=== PATIENT | male | born 1955 ===

== ENCOUNTER 2019-12-02 15:07 | Outpatient (REF) | payer SELFPAY ==
[2019-12-02 17:14] LABS: Chol HDL Ratio 3.98 mg/dL (1.0-5.00); Cholesterol 163 mg/dL (0-200); Glucose 113 mg/dL (65-115); HDL Cholesterol 41 mg/dL (60-100); LDL Cholesterol Calculated 106 mg/dL (50-129); LDL HDL Ratio 2.59 RATIO (0.00-3.22); Triglycerides 79 mg/dL (0-150)
[2019-12-02 17:55] LABS: Estmated Average Glucose 111; Hemoglobin A1C 5.5 % (4.0-6.0)
== END 2019-12-02 15:08 | disposition home or self-care (01) ==
LOC: LAB 15:07
PROVIDERS: Visit Provider Dermatology
DX: Z13.9 Encounter for screening, unspecified (principal)
CPT/HCPCS: 80061; 82947; 83036